=== PATIENT | male | born 1965 | race Caucasian/White ===

== ENCOUNTER 2018-07-29 21:42 | Emergency (ER) | payer BC ==
--- NOTE | 2018-07-29 22:58 | EDM.PDOC ---
ED HPI GENERAL MEDICAL PROBLEM - General Chief Complaint: Skin Complaint Stated Complaint: RASH Time Seen by Provider: 07/29/18 22:45 Source of Information: Reports: Patient, Family History Limitations: Reports: No Limitations - History of Present Illness INITIAL COMMENTS - FREE TEXT/NARRATIVE: Alert 52-year-old gentleman presents with hive-like lesions on various areas on his body. Most significant areas in inner upper thighs. Patient noticed a slight rash yesterday on bilateral wrists. Rash is resolved in one area and recurrent other areas of his body. He took Benadryl at 1:00 and again at 5:30 with minimal improvement of his rash. Patient denies any significant itching. Patient denies any difficulty breathing, shortness of breath or wheezing. Patient denies any difficulty swallowing or wheezing. He was exposed to increase amount of weed spray but it is something he has used in the past. He's been exposed to outdoor environments. No new lotion, soaps, perfumes, laundry detergents or any other new exposures. denies pain Pain Score (Numeric/FACES): 0 - Related Data Allergies Allergy/AdvReac Type Severity Reaction Status Date / Time tree nut Allergy Airway Verified 07/29/18 22:32 Tightness Home Meds: Home Meds HCTZ/Triamterene [Maxzide 25-37.5 MG] 1 tab PO DAILY 04/25/13 [History] Cetirizine [ZyrTEC] 10 mg PO Q6H PRN 10 Days #60 tab 07/29/18 [Rx] Empagliflozin [Jardiance] 10 mg PO DAILY 07/29/18 [History] Rosuvastatin Calcium 5 mg PO DAILY 07/29/18 [History] metFORMIN HCl [Metformin HCl] 1,000 mg PO BID 07/29/18 [History] predniSONE [Prednisone] 20 mg PO BID 5 Days #10 tablet 07/29/18 [Rx] Past Medical History HEENT History: Reports: Impaired Vision Cardiovascular History: Reports: High Cholesterol, Hypertension Neurological History: Reports: Concussion Endocrine/Metabolic History: Reports: Diabetes, Type II - Infectious Disease History Infectious Disease History: Reports: Chicken Pox - Past Surgical History Musculoskeletal Surgical History: Reports: Carpal Tunnel Social & Family History - Tobacco Use Smoking Status *Q: Never Smoker - Caffeine Use Caffeine Use: Reports: Coffee - Recreational Drug Use Recreational Drug Use: No ED ROS GENERAL - Review of Systems Review Of Systems: ROS reveals no pertinent complaints other than HPI. Skin: Reports: Pruritis, Rash ED EXAM, SKIN/RASH Exam: See Below Exam Limited By: No Limitations General Appearance: Alert, WD/WN, No Apparent Distress Eye Exam: Bilateral Eye: EOMI, PERRL Ears: Normal External Exam, Hearing Grossly Normal Nose: Normal Inspection, Normal Mucosa, No Blood Throat/Mouth: Normal Inspection, Normal Lips, Normal Teeth, Normal Gums, Normal Oropharynx, Normal Voice, No Airway Compromise Head: Atraumatic, Normocephalic Neck: Normal Inspection, Supple, Full Range of Motion Respiratory/Chest: No Respiratory Distress, Lungs Clear, Normal Breath Sounds Cardiovascular: Normal Peripheral Pulses GI/Abdominal: Normal Bowel Sounds, Soft, Non-Tender Extremities: Normal Inspection, Normal Range of Motion, Non-Tender, No Pedal Edema, Normal Capillary Refill Neurological: Alert, Oriented, CN II-XII Intact, Normal Cognition, Normal Gait, Normal Reflexes, No Motor/Sensory Deficits Psychiatric: Normal Affect, Normal Mood Skin: Erythema (wheal and flare rash which blanches to palpation on numerous areas of his body. Most significnat concerntration bilateral inner upper thighs) Location, Skin: Neck, Abdomen, Back, Upper Extremity, Right, Upper Extremity, Left, Lower Extremity, Right, Lower Extremity, Left, Groin Characteristics: Other (wheal and flare) Associated features: Warmth Lymphatic: No Adenopathy Course - Vital Signs Last Recorded V/S: Last Vital Signs Temp 37.2 C 07/29/18 22:35 Pulse 95 07/29/18 22:35 Resp 16 07/29/18 22:35 BP 117/98 H 07/29/18 22:35 Pulse Ox 97 07/29/18 22:35 Departure - Departure Time of Disposition: 22:57 Disposition: Home, Self-Care 01 Clinical Impression: Allergic reaction, urticaria - Discharge Information Prescriptions: Cetirizine [ZyrTEC] 10 mg PO Q6H PRN 10 Days #60 tab PRN Reason: hives predniSONE [Prednisone] 20 mg PO BID 5 Days #10 tablet Instructions: Hives Referrals: Zay Marie MD [Primary Care Provider] - Forms: ED Department Discharge Additional Instructions: 1. Aveno Oatmeal bath to help with itching and rash as needed. 2. Zyrtec 10mg BID up to 40mg daily x 24 hours. 3. Prednisone 20mg BID x 5 days for allergic reaction if not improving with more conservative treatments. 4. Cool showers and avoid warm conditions which will make rash worsen. 5. Call PCP recheck in 5-7 days if not improving or if improve the worsen. 6. Keep a Diary/List of all exposures over the last 24-48 hours for reference if recurrent rash occurs. 7. Up To Date Patient information regarding Urticaria given to patient for review. - Problem List & Annotations (1) Allergic reaction, urticaria SNOMED Code(s): 91338842 Code(s): L50.0 - ALLERGIC URTICARIA Status: Acute Current Visit: Yes - Assessment/Plan Plan: 1. Aveno Oatmeal bath to help with itching and rash as needed. 2. Zyrtec 10mg BID up to 40mg daily x 24 hours. 3. Prednisone 20mg BID x 5 days for allergic reaction if not improving with more conservative treatments. 4. Cool showers and avoid warm conditions which will make rash worsen. 5. Call PCP recheck in 5-7 days if not improving or if improve the worsen. 6. Keep a Diary/List of all exposures over the last 24-48 hours for reference if recurrent rash occurs. 7. Up To Date Patient information regarding Urticaria given to patient for review.
== END 2018-07-29 23:15 | disposition home or self-care (01) ==
LOC: JP.ED 21:42
DX: L50.0 Allergic urticaria (principal); E78.00 Pure hypercholesterolemia, unspecified; I10 Essential (primary) hypertension; E11.9 Type 2 diabetes mellitus without complications; Z79.899 Other long term (current) drug therapy; Z79.84 Long term (current) use of oral hypoglycemic drugs
CPT/HCPCS: 99282

== ENCOUNTER 2022-03-31 08:36 | Day surgery (SDC) | payer BC, OTHER ==
[2022-03-31] MEDS ORDERED: Dextrose 5%-Lactated Ringers 1,000 ML IV SCH (09:00)
[2022-03-31] MEDS ORDERED: Lactated Ringers 1,000 ML IV SCH (09:00)
[2022-03-31] MEDS ORDERED: fentaNYL 250 MCG/5 ML SDV ONE (09:20)
[2022-03-31] MEDS ORDERED: Propofol 200 MG/20 ML SDV ONE (09:20)
[2022-03-31] MEDS ORDERED: Midazolam 1 MG/ML 2 ML SDV ONE (09:20)
== END 2022-03-31 11:30 | disposition home or self-care (01) ==
LOC: JP.SDS 08:36
PROVIDERS: ATTEND Family Medicine
DX: Z12.11 Encounter for screening for malignant neoplasm of colon (principal); D12.0 Benign neoplasm of cecum; I10 Essential (primary) hypertension; E11.9 Type 2 diabetes mellitus without complications; Z79.899 Other long term (current) drug therapy; Z91.018 Allergy to other foods
CPT/HCPCS: 45380; 88305; J2250; J2704; J3010; J7121